=== PATIENT | female | born 1940 | race Caucasian/White ===

== ENCOUNTER 2023-05-01 14:40 | Outpatient (CLI) | payer OTHER, SELFPAY | END 2023-05-01 14:41 | disposition home or self-care (01) | PROVIDERS: Visit Provider Nurse Practitioner Family | DX: R30.0 Dysuria (principal); N39.0 Urinary tract infection, site not specified; N30.00 Acute cystitis without hematuria | CPT/HCPCS: 87086; 87186 ==